=== PATIENT | female | born 1965 | race Caucasian/White ===

== ENCOUNTER → 2018-07-22 10:26 | Outpatient (CLI) | payer BC ==
[~2018-07-22 10:26] MED LIST: COZAAR100 MG PO; ESTRACE2 MG PO; HYDROCHLOROTHIA25 MG PO; NORVASC5 MG PO; OMEPRAZOLE20 M1 PO; OXYCODONE HCL5 M1 PO
[2018-08-18 06:33] VITALS: BMI 35.4
== END | disposition home or self-care (01) ==
LOC: D.RAD 10:26
DX: R10.9 Unspecified abdominal pain (principal); R06.6 Hiccough; R14.0 Abdominal distension (gaseous)

== ENCOUNTER → 2018-07-26 10:04 | Outpatient (CLI) | payer BC ==
[2018-08-18 06:33] VITALS: BMI 35.4
== END | disposition home or self-care (01) ==
LOC: D.NM 10:04
DX: R10.9 Unspecified abdominal pain (principal); R06.6 Hiccough; R14.0 Abdominal distension (gaseous)

== ENCOUNTER 2018-08-18 06:00 | Day surgery (SDC) | payer BC ==
[~2018-08-18] VITALS: Ht 162.6 cm; Wt 93.4 kg
[~2018-08-18 06:00] MED LIST changes: -OXYCODONE HCL5 M1 PO
[2018-08-18 06:33] VITALS: BP 128/66; Ht 162.6 cm; Wt 93.4 kg
[2018-08-18 07:53] LABS: ANION GAP 14.8 mmol/L (8-16); CALCIUM 8.5 mg/dL (8.5-10.1); CARBON DIOXIDE 27.3 mmol/L (21.0-32.0); CREATININE - SERUM 0.9 mg/dL (0.6-1.3); POTASSIUM - SERUM 3.1 mmol/L (3.5-5.1)
[2018-08-18 08:04] LABS: HEMATOCRIT 34.6 % (36.0-48.0); HEMOGLOBIN 11.7 g/dL (12-16); MCH 27.9 pg (26.0-34.0); MCHC 33.8 g/dL (31.0-37.0); MCV 82.6 fL (80.0-100.0); MEAN PLATELET VOLUME 10.7 fL (7.4-10.4); RBC 4.19 10x6/uL (4.00-5.40); RDW 13.3 % (11.5-14.5); WBC 3.8 10x3/uL (4.8-10.8)
[2018-08-18] MEDS ORDERED: OXYCODONE HCL5 M1 PO (09:26)
== END 2018-08-18 16:05 | disposition home or self-care (01) ==
LOC: D.OPS 06:00 → D.PAN 10:45 → D.OPS 12:30
PROVIDERS: Anesthesiology
DX: R13.10 Dysphagia, unspecified (principal); Z46.51 Encounter for fitting and adjustment of gastric lap band; K21.9 Gastro-esophageal reflux disease without esophagitis; Z01.812 Encounter for preprocedural laboratory examination

== ENCOUNTER → 2018-11-02 07:27 | Outpatient (CLI) | payer BC ==
[2018-08-18 06:33] VITALS: BMI 35.4
[~2018-11-02 07:27] MED LIST changes: +OXYCODONE HCL5 M1 PO
[2018-11-02 09:40] LABS: CREATININE - SERUM 0.9 mg/dL (0.6-1.3)
== END | disposition home or self-care (01) ==
LOC: D.NM 07:27
PROVIDERS: Urology
DX: N26.1 Atrophy of kidney (terminal) (principal)